=== PATIENT | male | born 1975 | race Hispanic/Latino ===

== ENCOUNTER 2016-06-19 03:07 | Emergency (ER) | payer MEDICAID ==
[~2016-06-19 03:07] MED LIST: CALC667S PO; CARV25TA2 PO; ERGO500050 PO; NIFE60TA62 PO; NITR0.4T6 SL; PHO667 PO
--- NOTE | 2016-06-19 06:53 | ED.REPORT ---
HPI-Abd Pain M 40 and Over Date of Service Jun 19, 2016 ED Provider: Cuong Gonzalez MD 41yoM libyan only speaking with PMH remarkable for ESRD 2/2 cedric's on hemodialysis presents with 3 days of worsening abdominal pain and constipation. The patient states that this has happened once before and he was seen in the ED and given medication which helped relieve his pain. The patient states that he typically stools 2-3 times per day, however he states that he has not stooled within the last 3 days. The patient states that yesterday at dialysis with Dr. Guevara he was given Omeprazole for his abdominal pain and he has taken one dose without improvement in his pain. The patient describes the pain as diffuse but mostly right sided and would rate the pain as 6 out of 10. Nursing Notes Stated Complaint: CONSTIPATION Chief Complaint: General Complaint Nursing Notes Reviewed: Yes Allergies: Coded Allergies: metoclopramide HCl (Verified Adverse Reaction, Intermediate, anxiety, stiffness and numbness, 06/25/14) Scheduled Calcium Acetate (Phoslo) 667 Mg Tablet 2,668 MG PO TIDWM Calcium Acetate (Phoslyra) 667 Mg/5 Ml Solution 2,001 MG PO TIDWM Carvedilol (Carvedilol) 25 Mg Tablet 25 MG PO BID Ergocalciferol (Vitamin D2) (Drisdol) 50,000 Unit Capsule 50,000 UNIT PO Q7D Nifedipine ER (Nifedipine ER) 60 Mg Tab.er.24 60 MG PO BID Scheduled PRN Bisacodyl (Dulcolax Rectal) 10 Mg Supp.rect 10 MG RC DAILY PRN PRN For Constipation Lactulose (Lactulose) 10 Gm/15 Ml Solution 10 GM PO Q8H PRN PRN For Constipation Nitroglycerin SL (Nitroglycerin SL) 0.4 Mg Tab.subl 0.4 MG SL DIRECTED PRN PRN For Chest Pain General Time Seen by MD: 04:30 Chief Complaint Abdominal pain, Constipation Hx Obtained From: Patient, Spouse Arrived By: Walk-in Sudden in Onset?: No Onset Occurred: 3 days ago Symptom Duration: Since onset Progression since Onset: Waxes and wanes, Gradually worsening Location: : Diffuse Quality: Cramping Radiation: : Does not radiate Severity: Current: Pain level 6 out of 10 Severity: Maximum: Moderate Recent Healthcare: Recent doctor visit Similar Sx Previous: Yes Past Medical History Past Medical History End stage renal disease on dialysis Reports: Hypertension Past Surgical History left arm fistula Family History Noncontributory Smoking History Never Smoker Social History Alcohol Use: Denies alcohol use Drug Use: Denies drug use Other Social History: Good social support, Lives with children, Local resident Occupation Does not work Ambulatory Status Independent Review of Systems Constitutional: Denies: Chills, Fever Respiratory: Denies: Hemoptysis, Non-productive cough Cardiovascular: Denies: Chest pain, Palpitations GI: Denies: Diarrhea, Hematochezia, Melena Male: Denies Dysuria, Denies Hematuria Musculoskeletal: Denies: Joint swelling Complete sys rev & neg: except as marked. Physical Exam Initial Vital Signs See nursing notes Initial VS: Reviewed Head / Eyes: Atraumatic, Normocephalic, PERRL ENT: Mucous membranes moist, Conjunctiva normal, No scleral icterus Neck: Supple, Non-tender, Full range of motion Lymphatic: No lymphadenopathy Extremities: Vascular intact, Neuro intact, No swelling, No tenderness Skin: Warm, Dry, No cyanosis Neurologic: Alert, Oriented, Nonfocal Psychiatric: Mood/affect normal, Behavior normal, Normal thought content General/Constitutional: Awake, Alert Distress / Hydration: Positive: Distress mild Respiratory / Chest: Breath sounds NL, Breath sounds = bilat, No respiratory distress, No rales, No rhonchi, No wheezing Cardiovascular: Heart rate NL, Regular rhythm, Heart sounds NL, Peripheral circulation NL Abdomen: Atraumatic, Soft, McBurney's non-tender, No guarding, No rebound, No distention, No hernia, No palpable mass, No pulsatile mass Tenderness/Guarding/Rebound: Positive: Tender RLQ... (Mild), Tender RUQ... ( Mild), Tender diffuse Bowel Sounds / Distention: Positive: Bowel sounds hypoactive Head / Eyes: Normocephalic, PERRL ENT: Airway patent, Mucous membranes moist, Pharynx NL Skin: Color NL, Warm, Dry, Turgor NL fistula present in right UE without erythema, purulence or fluctuance noted on exam Re-Eval/Medical Decision Med Decision/Clinical Course 41yoM with ESRD 2/2 cedric's presents with 3 days of reported constipation. Xray imaging is consistent with constipation. Dulcolax suppository and lactulose prescribed. Patient advised to follow up with his PCP without improvement. Counseled Regarding: Diagnosis, Lab results, Need for follow-up, When/why to return to ED Discharge & Departure Primary Impression: Constipation Additional Impression: ESRD (end stage renal disease) on dialysis Ruled Out: Small bowel obstruction Disposition: Home )( All Prior VS Reviewed: Yes Condition: Stable Patient Instructions: Constipation (ED) Additional Instructions: During you visit to [facility] Emergency Department we obtained blood work for infectious markers, blood cell numbers, and electrolytes. We obtained xray imaging of your abdomen consistent with constipation. Your vital signs were stable and safe for discharge. We will send you home with - Docusate Suppositories as well as Lactulose for constipation - Zofran Nausea medications If you do not have a bowel movement within the next 36 hours taking the above medication please try and be seen by your PCP for evaluation where other medication by be considered. Do not hesitate to call emergency services or your primary care physician if you experience any of the following. - High unrelenting fevers. - Uncontrolled vomiting. - Severe hypertension. - dizziness or loss of consciousness. - Chest pain or severe shortness of breath. With return of normal bowel function please follow up with your primary care physician in 1-2 weeks time following your emergency department visit for medication checks and general well-being. Karsten campoverde visita al [facility], obtuvimos anlisis de madhavi para marcadores infecciosos, nmeros de clulas sanguneas y electrolitos. Hemos obtenido michael radiografa de campoverde abdomen consistente con estreimiento. Dyan signos vitales temi estables y seguros para el marge. Te enviaremos a casa con - Suppositories Docusate, as bonita Lactulose para el estreimiento - Zofran Medicamentos para las nuseas Si no tiene un movimiento intestinal dentro de las siguientes 36 horas tomando la medicacin anterior por favor trate de ser visto por campoverde PCP para evaluacin donde se considere otra medicacin. No dude en llamar a los servicios de emergencia oa campoverde mdico de atencin primaria si experimenta alguno de los siguientes sntomas. - Fiebres implacables y elevadas. - Vmitos incontrolados. - Hipertensin grave. - mareos o prdida del conocimiento. - Dolor en el pecho o falta de aire severa. Con el retorno de la funcin intestinal normal, por favor, siga con campoverde mdico de atencin primaria en 1-2 semanas despus de campoverde visita al departamento de emergencia para verificaciones de la medicacin y bienestar general. Referrals: Thea Collins MD (PCP) Attending Statement As attending of record for this patient, I conducted an independent history and physical examination, and agree with the resident documentation as above, and as amended. copies to: Thea Collins MD, NICHOLAS K DO Jun 19, 2016 06:50 Cuong Gonzalez MD Jun 19, 2016 07:26
[2016-06-19] MEDS ORDERED: DOCU283E2 RC (07:10)
[2016-06-19] MEDS ORDERED: LACT10SO27 PO (07:10)
[2016-06-19] MEDS ORDERED: BISA10SU61 RC (07:14)
[2016-06-19] MEDS ORDERED: ONDA8TAB7 PO (07:41)
--- NOTE | 2016-06-19 08:20 | DRSVH ---
PROCEDURE: X-RAY ACUTE ABDOMINAL SERIES ([id number]) INDICATIONS: PAIN, CONSTIPATION TECHNIQUE: One view chest and two views of the abdomen were acquired. COMPARISON: [facility], CR, XR CHEST 2VW, 04/03/2016, 9:41. FINDINGS: Surgical changes and devices: None. Chest: Lungs are clear. Heart size is normal. No pleural effusions. No pneumoperitoneum. Abdomen: Bowel gas pattern is normal. No suspicious calcifications. Visualized solid organ contour s appear normal. Bones: No suspicious bony lesions. IMPRESSION: No acute process. Dictated by: Yvon Conklin M.D. on 06/19/2016 at 8:18 Approved by: Yvon Conklin M.D. on 06/19/2016 at 8:18
[2016-06-19 08:27] LABS: BASOPHILS % (AUTO) 0.1 % (0-3); EOSINOPHILS % (AUTO) 2.3 % (0-5); MONOCYTES % (AUTO) 8.5 % (4-12); Mean Corpuscular Hemoglobin 30.9 pg (27.0-35.0); NEUTROPHILS % (AUTO) 77.3 % (40-74); Platelet Count 203 bil/L (150-400)
[2016-06-19 08:30] LABS: Magnesium 2.1 mg/dL (1.6-2.6)
[2016-06-19 08:45] VITALS: BP 121/77; PULSE 85; RESP 18; O2SAT 94
== END 2016-06-19 08:46 | disposition home or self-care (01) ==
LOC: SED 03:07
DX: K59.00 Constipation, unspecified (principal); I12.0 Hypertensive chronic kidney disease with stage 5 chronic kidney disease or end stage renal disease; N18.6 End stage renal disease; Z99.2 Dependence on renal dialysis; Z95.828 Presence of other vascular implants and grafts; Z88.8 Allergy status to other drugs, medicaments and biological substances

== ENCOUNTER 2016-09-23 20:45 | Emergency (ER) | payer MEDICAID ==
[~2016-09-23 20:45] MED LIST changes: +BISA10SU61 RC; +LACT10SO27 PO; +ONDA8TAB7 PO
[2016-09-23 21:00] VITALS: BP 158/99; PULSE 88; RESP 20; O2SAT 99
--- NOTE | 2016-09-23 22:28 | ED.REPORT ---
HPI-Rash / Abscess Date of Service September 23, 2016 ED Provider: Dominick JordanO. A 41 year old male with a history of hypertension and ESRD on dialysis presents to the ED with bilateral leg rashes onset three days ago, after being dialyzed. The rashes are red but not painful. The patient also reports mild constipation. He denies fever, nausea, vomiting, cough, epistaxis, hemoptysis, or other symptoms. The patient has had similar symptoms in the past that resolved on their own. His last dialysis was today. Nursing Notes Stated Complaint: LEG PAIN Chief Complaint: Skin Rash/Abscess Nursing Notes Reviewed: Yes Allergies: Coded Allergies: metoclopramide HCl (Verified Adverse Reaction, Intermediate, anxiety, stiffness and numbness, 09/23/16) Scheduled Calcium Acetate (Phoslo) 667 Mg Tablet 2,668 MG PO TIDWM Calcium Acetate (Phoslyra) 667 Mg/5 Ml Solution 2,001 MG PO TIDWM Carvedilol (Carvedilol) 25 Mg Tablet 25 MG PO BID Ergocalciferol (Vitamin D2) (Drisdol) 50,000 Unit Capsule 50,000 UNIT PO Q7D Nifedipine ER (Nifedipine ER) 60 Mg Tab.er.24 60 MG PO BID Scheduled PRN Bisacodyl (Dulcolax Rectal) 10 Mg Supp.rect 10 MG RC DAILY PRN PRN For Constipation Lactulose (Lactulose) 10 Gm/15 Ml Solution 10 GM PO Q8H PRN PRN For Constipation Nitroglycerin SL (Nitroglycerin SL) 0.4 Mg Tab.subl 0.4 MG SL DIRECTED PRN PRN For Chest Pain Ondansetron ODT (Zofran ODT) 8 Mg Tablet 8 MG PO Q4H PRN PRN For Nausea General Time Seen by MD: 22:28 Chief Complaint Rash Hx Obtained From: Patient Arrived By: Walk-in Onset Occurred: 3 days ago Symptom Duration: Since onset Severity: Current: No pain currently Severity: Maximum: No pain Pertinent Negative: Relieved by nothing Recent Healthcare: No recent doctor visit Similar Sx Previous: Yes Past Medical History Past Medical History End stage renal disease on dialysis Reports: Hypertension Past Surgical History left arm fistula Family History Noncontributory Smoking History Never Smoker Social History Alcohol Use: Denies alcohol use Drug Use: Denies drug use Other Social History: Good social support, Lives with children, Local resident Occupation Does not work Ambulatory Status Independent Review of Systems Constitutional: Denies: Fever Ears / Nose / Throat: Denies: Nose bleeding Respiratory: Denies: Hemoptysis, Non-productive cough, Shortness of breath GI: Reports: Constipation (Mild), Denies: Nausea, Vomiting Skin: Reports Rash (Bilateral legs) Complete sys rev & neg: except as marked. Physical Exam Initial Vital Signs Vital Signs (First) Date Time Temp Pulse Resp B/P Pulse Ox O2 Delivery O2 Flow Rate FiO2 09/23/16 21:00 37.2 88 20 158/99 99 Room Air Initial VS: Reviewed Head / Eyes: Atraumatic, Normocephalic ENT: Conjunctiva normal, No scleral icterus Neck: Supple, Full range of motion Respiratory: Breath sounds normal, Clear to auscultation, No respiratory distress Cardiovascular: Regular rate & rhythm, Heart sounds normal Neurologic: Alert, Oriented, Nonfocal Psychiatric: Mood/affect normal, Behavior normal, Normal thought content General/Constitutional: Awake, Alert Skin: Warm, Dry Rash / Lesion Notes: Petechia progressing to purpura on anterior shins bilaterally Interpretation & Diagnostics Lab Results Interpretation Result Diagram: 09/24/16 0032 09/24/16 0032 Test 09/24/16 00:32 09/24/16 03:55 White Blood Count 7.8th/mm3 (3.8-10.1) Red Blood Count 3.64mil/mm3 (4.40-5.80) Hemoglobin 10.7g/dL (13.8-17.2) Hematocrit 32.6% (41.0-50.0) Mean Corpuscular Volume 89.6fL (81-100) Mean Corpuscular Hemoglobin 29.4pg (27.0-35.0) Mean Corpuscular Hemoglobin Concent 32.8% (32.0-37.0) Red Cell Distribution Width 15.0% (12.3-15.4) Platelet Count 246bil/L (150-400) Neutrophils (%) (Auto) 64.9% (40-74) Lymphocytes (%) (Auto) 18.7% (14-46) Monocytes (%) (Auto) 9.9% (4-12) Eosinophils (%) (Auto) 5.9% (0-5) Basophils (%) (Auto) 0.3% (0-3) Erythrocyte Sedimentation Rate 40mm/hr (0-15) Prothrombin Time 10.1sec (8.1-12.5) Prothromb Time International Ratio 0.95ratio Activated Partial Thromboplast Time 31.0sec (22.8-33.0) Sodium Level 138mEq/L (134-144) Potassium Level 3.3mEq/L (3.5-5.2) Chloride Level 91mEq/L (97-108) Carbon Dioxide Level 30mmol/L (18-29) Blood Urea Nitrogen 29mg/dL (6-24) Creatinine 5.15mg/dL (0.76-1.27) Estimat Glomerular Filtration Rate 13mL/min (>59) Glucose Level 101mg/dL (60-99) Calcium Level 8.3mg/dL (8.5-10.1) Total Bilirubin 0.2mg/dL (0.0-1.2) Aspartate Amino Transf (AST/SGOT) 11U/L (0-50) Alanine Aminotransferase (ALT/SGPT) 9U/L (0-44) Alkaline Phosphatase 76U/L (25-150) C-Reactive Protein 2.1mg/dL (0.0-0.5) Total Protein 7.2g/dL (6.4-8.4) Albumin 3.9g/dL (3.4-5.0) Hold Sweeney Top Tube Received (Received) Hepatitis C Comment . Procedures BIOPSY COLLECTION: TIME: 02:50 PROCEDURE PERFORMED BY: ED physician CONSENT/SETUP/SITE PREP: Consent from patient, Time-out performed, Hand hygiene observed, Stand sterile technique LOCATION: Left anterior calf BIOPSY SIZE/INSTRUMENT: Punch biopsy, 3mm SKIN PREP: Chlorhexidine SKIN REPAIR: 5O Nylon, 2 sutures SUTURE TECHNIQUE: Mattress POST-PROCEDURE/COMPLICATIONS: Dressing applied, No complications, Condition improved, Tolerated procedure well, Patient stable Re-Eval/Medical Decision Med Decision/Clinical Course Petechial outbreak is been present for 4 days. Some up to give Colace what looks like purpura. No lesions are raised. Symptoms actually looked better after he elevated his legs. No signs of meningococcemia. No signs of sepsis. Biopsy was taken. Consult nephrology appreciated. Dr. Ramos concurs with the antibiotics and the tissue biopsy. Consult hospitalist appreciated. Concurs with antibiotics and outpatient follow-up. Mr. Evans received Rocephin and vancomycin. He is going to call his labor economist tomorrow morning for recheck. He will also call call to follow up with a tissue biopsy. Source of Hx: Old records Re-Evaluation/Progress : Time of Eval: 02:45 Patient Status: Condition improved Re-Evaluation/Progress Note: Discussed with patient lab results, nephrology consult, diagnosis, and plan for biopsy with subsequent discharge. Follow-up and return to the ER instructions given. Patient agrees with plan for care and all questions were addressed. Consultation #1: Referral / Consult Name: James Ramos DO Consulted With: Nephrology Call Returned at: 02:30 Helicopter Officer: Agrees with avery, Agrees with plan Note: Discussed patient's case Consultation #2: Referral / Consult Name: Go Tafoya MD Consulted With: Hospitalist Call Returned at: 02:40 Helicopter Officer: Agrees with avery, Agrees with plan Note: Recommends acute hepatitis panel Counseled Regarding: Diagnosis, Lab results, Need for follow-up, When/why to return to ED Discharge & Departure Impression: Primary Impression: Petechial eruption Disposition: Home Discharge Condition All VS Reviewed: Yes Condition: Improved Patient Instructions: Dermatitis (ED) Additional Instructions: The rash looks like petechia which is bleeding under the skin. This may be related to the dialysis. This may be related to an infection. Take Keflex twice daily for 5 days. We have sent out a tissue biopsy and this will be available this week. Call [facility] clinic in the morning to set up a follow-up for this week. Call your labor economist to set up a follow-up for this week as well. If the rash grows in size or if you develop a fever or any new or worsening symptoms come right back to the emergency department. GOOGLE TRANSLATE: La erupcin se parece a petechia que est sangrando debajo de la piel. [place] puede estar relacionado con la dilisis. [place] puede estar relacionado con michael infeccin. [place] Keflex dos veces al da oscar 5 steve. Hemos enviado michael biopsia de tejido y sta estar disponible esta semana. Llame a la clnica de [facility] en la maana para establecer un seguimiento para esta semana. Llame a campoverde nefrlogo para establecer un seguimiento para esta semana tambin. Si la erupcin crece en tamao o si usted desarrolla fiebre o cualquier nuevo o empeoramiento de los sntomas vienen de vuelta al departamento de emergencia. Referrals: Thea Collins MD (PCP) Geraldine Giron MD Scribe Attestation Portions of this note were transcribed by Carrie Goff. I, Dr. Garcia, personally performed the history, physical exam, and medical decision-making; I reviewed and confirmed the accuracy of the information in the transcribed note. Signed by: Chloe Yee, 09/24/2016, 04:10 copies to: Geraldine Giron MD; Thea Collins MD, Todd P DO September 23, 2016 22:28 CARRIE GOFF September 23, 2016 22:55
[2016-09-24 00:45] LABS: BASOPHILS % (AUTO) 0.3 % (0-3); EOSINOPHILS % (AUTO) 5.9 % (0-5); MONOCYTES % (AUTO) 9.9 % (4-12); Mean Corpuscular Hemoglobin 29.4 pg (27.0-35.0); Mean Corpuscular Volume 89.6 fL (81-100); NEUTROPHILS % (AUTO) 64.9 % (40-74); Platelet Count 246 bil/L (150-400)
[2016-09-24 00:46] VITALS: BP 136/94; PULSE 75; RESP 18; O2SAT 99
[2016-09-24 01:05] LABS: INR 0.95 ratio
[2016-09-24] MEDS ORDERED: cefTRIAXone Inj 2,000 MG in Dextrose 5% Minibag Plus 50 ML IV ONE (02:35)
[2016-09-24] MEDS ORDERED: Lidocaine 1%-Epi 1:100,000 20 mL Inj NERVEBLOCK ONE (02:50)
[2016-09-24 05:13] VITALS: BP 142/98; PULSE 77; RESP 14; O2SAT 98
[2016-09-25 01:09] LABS: Hepatitis A Antibody IgM Negative (Negative); Hepatitis B Core Antibody IgM Negative (Negative)
--- NOTE | 2016-09-27 10:15 | PATH ---
SURGICAL PATHOLOGY Attending Physician:See Additional MD CASE STATUS: Signed Out PATIENT NAME: RAYMON TELLO PID: [id number] : 1975 DATE COLLECTED:09/24/2016 00:00 SPECIMEN: Skin, biopsy CLINICAL HISTORY: PETECHIAE PURPURA ANTERIOR ANDERSON, NORMAL PLATELET 1. LEFT ANTERIOR ANDERSON FINAL DIAGNOSIS: DR. Marlys SKY, BOARD-CERTIFIED DERMATOPATHOLOGIST HAS REVIEWED THIS CASE. LEFT ANTERIOR ANDERSON, PUNCH BIOPSY: LEUKOCYTOCLASTIC VASCULITIS. NEGATIVE FOR MALIGNANCY. 09/27/2016, [facility] ICD10: L95.8 GROSS DESCRIPTION: The specimen is received in one formalin filled container labeled with the patient's name, sublabeled "left anterior anderson" and consists of a 0.3 x 0.3 x 0.4 CM london-simons to london-brown mottled punch biopsy of skin. The surgical margin is inked blue. The specimen is entirely submitted in one cassette. 09/24/2016 [facility] ICD-9 CODES: CPT CODES: 1: 41390 Electronically Signed Out Satish Leblanc M.D.,[facility] [address], [place] [address] Technical component performed at [facility], [address] [place] [address] Ave, [address], [place], [address]
== END 2016-09-24 05:17 | disposition home or self-care (01) ==
LOC: SED 20:45
DX: R23.3 Spontaneous ecchymoses (principal); I12.0 Hypertensive chronic kidney disease with stage 5 chronic kidney disease or end stage renal disease; N18.6 End stage renal disease; Z99.2 Dependence on renal dialysis; Z88.8 Allergy status to other drugs, medicaments and biological substances
CPT/HCPCS: 11100; 36415; 80053; 85025; 85610; 85651; 85730; 86140; 86705; 86709; 87040; 87340; 87341; 88305; 96365; 96367; 99284; G0472; J0696; J3370; J7060

== ENCOUNTER 2016-12-04 21:35 | Emergency (ER) | payer MEDICAID ==
[~2016-12-04] VITALS: Ht 160 cm; Wt 59.0 kg
[2016-12-04 21:41] VITALS: BP 136/85; PULSE 84; RESP 18; O2SAT 98
[2016-12-04 22:23] LABS: BASOPHILS % (AUTO) 0.2 % (0-3); EOSINOPHILS % (AUTO) 9.5 % (0-5); MONOCYTES % (AUTO) 8.9 % (4-12); Mean Corpuscular Hemoglobin 28.8 pg (27.0-35.0); Mean Corpuscular Volume 89.7 fL (81-100); NEUTROPHILS % (AUTO) 60.3 % (40-74); Platelet Count 213 bil/L (150-400)
--- NOTE | 2016-12-04 22:41 | ED.REPORT ---
HPI-Abd Pain M 40 and Over Date of Service Dec 04, 2016 ED Provider: Santiago Rankin MD Pt is a 41 year old male with a history of end stage renal disease dialysis, and HTN who presents to the ED complaining of hematochezia 3x onset 13:00 today. He denies abdominal pain. The pt denies a history of external hemorrhoid , bleeding in his stool, and colonoscopy. Per pt, he had been on dialysis for 5 years 3x a week because he had a kidney infection that "shut his kidneys down." Nursing Notes Stated Complaint: BLOOD IN STOOL Chief Complaint: Male Abdominal Pain Nursing Notes Reviewed: Yes Allergies: Coded Allergies: metoclopramide HCl (Verified Adverse Reaction, Intermediate, anxiety, stiffness and numbness, 09/23/16) Scheduled Calcium Acetate (Phoslo) 667 Mg Tablet 2,668 MG PO TIDWM Calcium Acetate (Phoslyra) 667 Mg/5 Ml Solution 2,001 MG PO TIDWM Carvedilol (Carvedilol) 25 Mg Tablet 25 MG PO BID Ergocalciferol (Vitamin D2) (Drisdol) 50,000 Unit Capsule 50,000 UNIT PO Q7D Nifedipine ER (Nifedipine ER) 60 Mg Tab.er.24 60 MG PO BID Scheduled PRN Bisacodyl (Dulcolax Rectal) 10 Mg Supp.rect 10 MG RC DAILY PRN PRN For Constipation Lactulose (Lactulose) 10 Gm/15 Ml Solution 10 GM PO Q8H PRN PRN For Constipation Nitroglycerin SL (Nitroglycerin SL) 0.4 Mg Tab.subl 0.4 MG SL DIRECTED PRN PRN For Chest Pain Ondansetron ODT (Zofran ODT) 8 Mg Tablet 8 MG PO Q4H PRN PRN For Nausea General Time Seen by : 22:40 Chief Complaint Other (hematochezia) Hx Obtained From: Patient Arrived By: Walk-in Sudden in Onset?: No Onset Occurred: 5 - 8 hours ago (13:00) Symptom Duration: Since onset Past Medical History Past Medical History End stage renal disease on dialysis Reports: Hypertension Past Surgical History left arm fistula Family History Noncontributory Smoking History Never Smoker Social History Alcohol Use: Denies alcohol use Drug Use: Denies drug use Other Social History: Good social support, Lives with children, Local resident Occupation Does not work Ambulatory Status Independent Review of Systems Constitutional: Denies: Fever Respiratory: Denies: Non-productive cough GI: Reports: Hematochezia, Denies: Abdominal pain Complete sys rev & neg: except as marked. Physical Exam Initial Vital Signs Vital Signs (First) Date Time Temp Pulse Resp B/P Pulse Ox O2 Delivery O2 Flow Rate FiO2 12/04/16 21:41 37.0 84 18 136/85 98 Room Air Initial VS: Reviewed Head / Eyes: Atraumatic, Normocephalic Neck: Supple, Full range of motion Extremities: Vascular intact, Neuro intact Skin: Warm, Dry, No cyanosis Neurologic: Alert, Oriented, Nonfocal Psychiatric: Mood/affect normal, Behavior normal General/Constitutional: Awake, Alert Respiratory / Chest: Atraumatic, Breath sounds NL, Breath sounds = bilat Cardiovascular: Heart rate NL, Regular rhythm, Heart sounds NL Trace lower extremity edema Abdomen: Atraumatic, Soft, Non-tender Back: Atraumatic, Full range of motion MALE : Prostate is 2+ Rectal for Blood: Positive: Blood - occult heme + Interpretation & Diagnostics Lab Results Interpretation Result Diagram: 12/04/166 12/04/16 2216 Test 12/04/16 22:16 White Blood Count 8.3th/mm3 (3.8-10.1) Red Blood Count 3.78mil/mm3 (4.40-5.80) Hemoglobin 10.9g/dL (13.8-17.2) Hematocrit 33.9% (41.0-50.0) Mean Corpuscular Volume 89.7fL (81-100) Mean Corpuscular Hemoglobin 28.8pg (27.0-35.0) Mean Corpuscular Hemoglobin Concent 32.2% (32.0-37.0) Red Cell Distribution Width 15.0% (12.3-15.4) Platelet Count 213bil/L (150-400) Neutrophils (%) (Auto) 60.3% (40-74) Lymphocytes (%) (Auto) 21.0% (14-46) Monocytes (%) (Auto) 8.9% (4-12) Eosinophils (%) (Auto) 9.5% (0-5) Basophils (%) (Auto) 0.2% (0-3) Prothrombin Time 10.1sec (8.1-12.5) Prothromb Time International Ratio 0.95ratio Sodium Level 138mEq/L (134-144) Potassium Level 3.4mEq/L (3.5-5.2) Chloride Level 94mEq/L (97-108) Carbon Dioxide Level 29mmol/L (18-29) Blood Urea Nitrogen 16mg/dL (6-24) Creatinine 3.94mg/dL (0.76-1.27) Estimat Glomerular Filtration Rate 18mL/min (>59) Glucose Level 126mg/dL (60-99) Calcium Level 8.2mg/dL (8.5-10.1) Total Bilirubin 0.2mg/dL (0.0-1.2) Aspartate Amino Transf (AST/SGOT) 22U/L (0-50) Alanine Aminotransferase (ALT/SGPT) 17U/L (0-44) Alkaline Phosphatase 72U/L (25-150) Total Protein 6.3g/dL (6.4-8.4) Albumin 3.6g/dL (3.4-5.0) Hold Sweeney Top Tube Received (Received) Re-Eval/Medical Decision Med Decision/Clinical Course 41-year-old male with a history of end-stage renal disease presenting with right red blood per rectum 3 starting earlier today. He has no history of this previously and does not know of any hemorrhoids. His exam is unremarkable for the same, but he is Hemoccult positive stool on the gloved finger. There is no gross blood noted on the rectal exam. His hemoglobin is unchanged from 3 months ago, ruling out acute anemia, and he is asymptomatic. There is no hypotension or tachycardia. He had no further bowel movements while in the emergency department. I advised that he needs a colonoscopy and will need to follow up with GI. He has a follow-up with his PCP tomorrow. Source of Hx: Old records Time of Eval: 23:29 Re-Evaluation/Progress Note: Pt rechecked. Performed rectal exam with pt's consent. Informed pt of plan for discharge. Pt understands and agrees with plan for discharge. F/U instructions and RTER warnings given. All questions addressed.All questions addressed. Counseled Regarding: Diagnosis, Lab results, Need for follow-up, When/why to return to ED Discharge & Departure Primary Impression: Bright red blood per rectum Additional Impressions: End stage renal disease on dialysis Hypokalemia Ruled Out: Acute blood loss anemia Disposition: Home Vital Signs - All Vital Signs Date Time Temp Pulse Resp B/P Pulse Ox O2 Delivery O2 Flow Rate FiO2 12/05/16 00:16 36.8 83 18 154/95 97 Room Air 12/04/16 21:41 37.0 84 18 136/85 98 Room Air )( All Prior VS Reviewed: Yes Condition: Stable Patient Instructions: Rectal Bleeding (ED) Additional Instructions: Thank you for entrusting us with your care. It appears your bleeding has stopped or slowed based off your exam and the fact you have not had more bloody stools since 1pm today. Keep your follow-up appointment with Dr. Aviles tomorrow. You will need to have a colonoscopy performed to figure out the cause of your bleeding. Please call the number below to arrange a consultation with a chairman and subsequent colonoscopy. Return to the Emergency Department if the bleeding gets worse, of if you feel lightheaded, weak, or experience any other worsening symptoms. Referrals: Thea Collins MD (PCP) Fabio Bojorquez MD Attestation Portions of this note were transcribed by Cande Will. I, Dr. Rankin personally performed the history, physical exam and medical decision-making; I reviewed and confirmed the accuracy of the information in the transcribed note. Signed by: Chloe Moya, 12/04/16. copies to: Thea Collins MD; Fabio Bojorquez MD, Gary R DO Dec 04, 2016 22:40 Cande Walker Dec 04, 2016 22:50
[2016-12-04 22:44] LABS: INR 0.95 ratio
[2016-12-05 00:16] VITALS: BP 154/95; PULSE 83; RESP 18; O2SAT 97
== END 2016-12-05 00:16 | disposition home or self-care (01) ==
LOC: SED 21:35
DX: K62.5 Hemorrhage of anus and rectum (principal); I12.0 Hypertensive chronic kidney disease with stage 5 chronic kidney disease or end stage renal disease; N18.6 End stage renal disease; E87.6 Hypokalemia; Z99.2 Dependence on renal dialysis; Z88.8 Allergy status to other drugs, medicaments and biological substances

== ENCOUNTER 2016-12-20 20:18 | Emergency (ER) | payer MEDICAID ==
[~2016-12-20] VITALS: Ht 160 cm; Wt 58.0 kg
[2016-12-20 20:21] VITALS: BP 157/100; PULSE 97; RESP 17; O2SAT 97
--- NOTE | 2016-12-20 21:48 | ED.REPORT ---
HPI-Abd Pain M 40 and Over Date of Service Dec 20, 2016 ED Provider: Dr. Jara Pt is a Turkish 41 year old male with end stage renal disease, on dialysis, who presents to the ED with concerns for intermittent abdominal pain for the past 3 days. He last had dialysis today. He reports that he has an appointment for a consult with the GI doctor, but the pain became so severe, that he was told to come in to the ED. Pt denies any nausea, vomiting fevers or chills, but admits to diarrhea and diffuse abdominal tenderness. He reports that he has had this pain in the past, but denies it ever being associated with diarrhea. Nursing Notes Stated Complaint: STOMACH PAIN Chief Complaint: Male Abdominal Pain Nursing Notes Reviewed: Yes Allergies: Coded Allergies: metoclopramide HCl (Verified Adverse Reaction, Intermediate, anxiety, stiffness and numbness, 09/23/16) Scheduled Calcium Acetate (Phoslo) 667 Mg Tablet 2,668 MG PO TIDWM Calcium Acetate (Phoslyra) 667 Mg/5 Ml Solution 2,001 MG PO TIDWM Carvedilol (Carvedilol) 25 Mg Tablet 25 MG PO BID Ciprofloxacin (Ciprofloxacin) 500 Mg Tablet 500 MG PO DAILY after dialysis Ergocalciferol (Vitamin D2) (Drisdol) 50,000 Unit Capsule 50,000 UNIT PO Q7D Metronidazole (Flagyl) 500 Mg Tablet 500 MG PO Q8H Nifedipine ER (Nifedipine ER) 60 Mg Tab.er.24 60 MG PO BID Scheduled PRN Bisacodyl (Dulcolax Rectal) 10 Mg Supp.rect 10 MG RC DAILY PRN PRN For Constipation Hydrocodone-Acetaminophen 5-325 mg (Hydrocodone-Acetaminophen 5-325 mg) 1 Each Tablet 1 TABLET PO Q4H PRN PRN For Pain Lactulose (Lactulose) 10 Gm/15 Ml Solution 10 GM PO Q8H PRN PRN For Constipation Nitroglycerin SL (Nitroglycerin SL) 0.4 Mg Tab.subl 0.4 MG SL DIRECTED PRN PRN For Chest Pain Ondansetron ODT (Zofran ODT) 8 Mg Tablet 8 MG PO Q4H PRN PRN For Nausea Ondansetron ODT (Zofran ODT) 4 Mg Tablet 4 MG PO Q4H PRN PRN For Nausea General Time Seen by MD: 21:47 Chief Complaint Abdominal pain Hx Obtained From: Patient Arrived By: Walk-in Sudden in Onset?: Yes Onset Occurred: 3 days ago Symptom Duration: Since onset Location: : Diffuse Quality: Painful Severity: Current: Moderate Severity: Maximum: Moderate Similar Sx Previous: Yes Past Medical History Past Medical History End stage renal disease on dialysis Reports: Hypertension Past Surgical History left arm fistula Family History Noncontributory Smoking History Never Smoker Social History Alcohol Use: Denies alcohol use Drug Use: Denies drug use Other Social History: Good social support, Lives with children, Local resident Occupation Does not work Ambulatory Status Independent Review of Systems Constitutional: Denies: Chills, Fever, Malaise, Weakness - generalized Respiratory: Denies: Non-productive cough, Shortness of breath, Wheezing Cardiovascular: Denies: Chest pain, Syncope GI: Reports: Abdominal pain, Diarrhea, Denies: Constipation, Nausea, Vomiting Male: Denies Dysuria, Denies Flank pain, Denies Urinary urgency Musculoskeletal: Denies: Back pain Complete sys rev & neg: except as marked. Physical Exam Initial Vital Signs Vital Signs (First) Date Time Temp Pulse Resp B/P Pulse Ox O2 Delivery O2 Flow Rate FiO2 12/20/16 20:21 37.3 97 17 157/100 97 Room Air Initial VS: Reviewed Head / Eyes: Atraumatic, Normocephalic, PERRL ENT: Mucous membranes moist, Conjunctiva normal, No scleral icterus Neck: Supple, Non-tender, Full range of motion Skin: Warm, Dry, No cyanosis Neurologic: Alert, Oriented, Nonfocal General/Constitutional: Awake, Alert Respiratory / Chest: Atraumatic, Breath sounds NL, Breath sounds = bilat, No respiratory distress Cardiovascular: Heart rate NL, Regular rhythm, Heart sounds NL, No gallop, No murmurs, No rubs Abdomen: Atraumatic, No guarding, No rebound Tenderness/Guarding/Rebound: Positive: Tender diffuse Back: Atraumatic, Inspection NL, No CVA tenderness Interpretation & Diagnostics Lab Results Interpretation Result Diagram: 12/20/16219912/20/162199 Test 12/20/16 22:00 12/20/16 22:15 White Blood Count 11.7th/mm3 (3.8-10.1) Red Blood Count 4.26mil/mm3 (4.40-5.80) Hemoglobin 12.1g/dL (13.8-17.2) Hematocrit 37.1% (41.0-50.0) Mean Corpuscular Volume 87.1fL (81-100) Mean Corpuscular Hemoglobin 28.4pg (27.0-35.0) Mean Corpuscular Hemoglobin Concent 32.6% (32.0-37.0) Red Cell Distribution Width 15.4% (12.3-15.4) Platelet Count 330bil/L (150-400) Neutrophils (%) (Auto) 70.7% (40-74) Lymphocytes (%) (Auto) 12.1% (14-46) Monocytes (%) (Auto) 9.3% (4-12) Eosinophils (%) (Auto) 7.4% (0-5) Basophils (%) (Auto) 0.2% (0-3) Sodium Level 138mEq/L (134-144) Potassium Level 3.4mEq/L (3.5-5.2) Chloride Level 94mEq/L (97-108) Carbon Dioxide Level 30mmol/L (18-29) Blood Urea Nitrogen 15mg/dL (6-24) Creatinine 3.37mg/dL (0.76-1.27) Estimat Glomerular Filtration Rate 21mL/min (>59) Glucose Level 134mg/dL (60-99) Calcium Level 8.4mg/dL (8.5-10.1) Magnesium Level 1.8mg/dL (1.6-2.6) Total Bilirubin 0.2mg/dL (0.0-1.2) Aspartate Amino Transf (AST/SGOT) 15U/L (0-50) Alanine Aminotransferase (ALT/SGPT) 10U/L (0-44) Alkaline Phosphatase 77U/L (25-150) Total Protein 6.4g/dL (6.4-8.4) Albumin 3.4g/dL (3.4-5.0) Lipase 28U/L (13-60) Hold Sweeney Top Tube Received (Received) CT Abd / Pelvis Interpretation Conclusion: Small bowel mural thickening with adjacent mesenteric haziness and mild associated ascited, consistent with an enteritis. Low grade small bowel obstruction is felt much less likely. Numerous small mesenteric lymph nodes which could be reactive or secondary to an adenitis. No findings of diverticulitis or acute appendicitis. Interpretation / Wet Read by: Interpret - Radiologist Re-Eval/Medical Decision Med Decision/Clinical Course 41-year-old male with history of end-stage renal disease on dialysis presenting with abdominal pain for several days. His labs are stable. CT scan shows enteritis. Inflammatory versus infectious. Possibly viral though will treat with abx as below. Follow-up primary doctor on Friday. Return precautions given. Source of Hx: Old records Time of Eval: 22:54 Re-Evaluation/Progress Note: Pt is rechecked and informed of his lab results, he requests a CT scan. Time of Eval: 00:20 Re-Evaluation/Progress Note: Pt is rechecked and informed of his CT results and the plan to discharge him at this time. He understands and agrees, all questions are addressed. Counseled Regarding: Diagnosis, Lab results, Need for follow-up, When/why to return to ED Discharge & Departure Primary Impression: Enteritis Disposition: Home Vital Signs - All Vital Signs Date Time Temp Pulse Resp B/P Pulse Ox O2 Delivery O2 Flow Rate FiO2 12/20/16 20:21 37.3 97 17 157/100 97 Room Air )( All Prior VS Reviewed: Yes Condition: Stable Additional Instructions: Thank you for seeking care in the emergency department today. You have enteritis, this is either inflammation or a mild infection in your intestine. Take the antibiotics as prescribed, take Tylenol to alleviate your pain. Follow-up with you primary care provider on Friday. Return if you begin to experience and worsening abdominal pain, fevers, vomiting , or any other new or worsening symptoms. Referrals: Adam Aviles MD (PCP) Janeneibcesar Attestation Portions of this note were transcribed by Yris Abad. I, Dr. Jara personally performed the history, physical exam and medical decision-making; I reviewed and confirmed the accuracy of the information in the transcribed note. Signed by:Chloe Walter, 12/20/2016 00:48 copies to: Adam Aviles MD, Ben M MD Dec 20, 2016 21:48 LESIA ABAD Dec 20, 2016 22:05
[2016-12-20] MEDS ORDERED: Ondansetron 2 mg/mL 2 mL Inj IVPUSH PRN (22:15)
[2016-12-20] MEDS ORDERED: LidocaineVisc 2%:Antacid 1:1 10 mL Syringe PO ONE (22:15)
[2016-12-20 22:18] LABS: BASOPHILS % (AUTO) 0.2 % (0-3); EOSINOPHILS % (AUTO) 7.4 % (0-5); MONOCYTES % (AUTO) 9.3 % (4-12); Mean Corpuscular Hemoglobin 28.4 pg (27.0-35.0); Mean Corpuscular Volume 87.1 fL (81-100); NEUTROPHILS % (AUTO) 70.7 % (40-74); Platelet Count 330 bil/L (150-400)
[2016-12-20 22:50] LABS: Magnesium 1.8 mg/dL (1.6-2.6)
[2016-12-21] MEDS ORDERED: METR500T PO ×2 (00:47→00:53)
[2016-12-21] MEDS ORDERED: CIPR-198 PO ×2 (00:47→00:53)
[2016-12-21] MEDS ORDERED: ONDA4TAB9 PO (00:47)
[2016-12-21] MEDS ORDERED: HYDR-4003 PO (00:54)
[2016-12-21 01:51] VITALS: BP 126/75; PULSE 96; RESP 18; O2SAT 99
--- NOTE | 2016-12-21 09:04 | DRSVH ---
PROCEDURE: CT ABDOMEN AND PELVIS WITHOUT CONTRAST ([id number]) INDICATIONS: abd pain TECHNIQUE: Noncontrast 5 mm thick sections acquired from the diaphragms to the symphysis. 5 mm coronal and sagi ttal reformats were then performed. For radiation dose reduction, the following was used: automated exposure control, adjustment of mA and/or kV according to patient size. COMPARISON: [facility], CT, ABD/PELVIS W/CON (PN), 06/25/2014, 18:09. FINDINGS: Image quality: Somewhat limited by absence of both oral and intravenous contrast. ABDOMEN: Lung bases: Lung bases are clear. Heart size is normal. Solid organs: Liver and spleen are normal in size. Gallbladder appears normal. Pancreas is normal in contours. No adrenal nodules. Kidneys are again seen to be diminutive in size, without hydroneph rosis or nephrolithiasis. Peritoneum and bowel: Unenhanced colonic bowel loops demonstrate normal wall thickness and caliber. Several small bowel loops at the left mid abdomen show mild mural thickening, and there is mild lory a within the mesenteric fat both on the right and left, slightly greater on the left near the bowel l oops showing mild mural thickening. No free air. There is a small amount of free fluid within the p eritoneal space, and no abscess is suspected. Nodes and vessels: No retroperitoneal or mesenteric adenopathy by size criteria. Aorta and inferior vena cava are normal in caliber. Miscellaneous: No ventral hernias. PELVIS: Genitourinary: Bladder wall thickness is normal. Miscellaneous: No inguinal hernias or adenopathy. Small amount of free fluid deep within the pelvis Bones: No suspicious bony lesions. No vertebral body compression fractures. IMPRESSION: There is a finding of diminutive kidneys bilaterally, previously present during CT scanni 06/25/14. Quality of visualization of the abdomen and pelvis is somewhat limited by absence of ora l and intravenous contrast. The patient is clinically reported to be a dialysis patient. A peritoneal dialysis catheter is not seen. There is a small amount of edema within the peritoneal f at and also a small amount of free fluid both within the abdomen and pelvis but no evidence of free a ir or abscess formation. Etiology of the free fluid is uncertain, volume overload could explain this appearance in the setting of 6 dialysis dependent patient. Several small bowel loops are wall-thickening at the left mid abdomen, etiology uncertain. Pneumatos is or adjacent foreign body or evidence of definite small bowel obstruction is not associated. Enter itis would be a potential likely cause for this finding. Note: These findings are concordant with the preliminary interpretation. Dictated by: Ignacio Arenas M.D. on 12/21/2016 at 8:57 Approved by: Ignacio Arenas M.D. on 12/21/2016 at 9:02
== END 2016-12-21 01:52 | disposition home or self-care (01) ==
LOC: SED 20:18
DX: K52.9 Noninfective gastroenteritis and colitis, unspecified (principal); I13.11 Hypertensive heart and chronic kidney disease without heart failure, with stage 5 chronic kidney disease, or end stage renal disease; N18.6 End stage renal disease; Z99.2 Dependence on renal dialysis; Z88.8 Allergy status to other drugs, medicaments and biological substances
CPT/HCPCS: 36415; 74176; 80053; 83690; 83735; 85025; 96374; 96375; 99285; J2270; J2405

== ENCOUNTER → 2017-01-16 | Day surgery (SDC) | payer MEDICAID ==
[~2017-01-16] VITALS: Ht 160 cm; Wt 57.5 kg
[~2017-01-16] MED LIST changes: +0.9% Sodium Chloride 1,000 ML IV ONE; +CIPR-198 PO; +CYCL50CA3 PO; +DAPS25TA PO; +FOLI0.8T2 PO; +HYDR-4003 PO; +LISI10TA PO; +METR500T PO; +NITR0.4T38 SL; -NITR0.4T6 SL; +ONDA4TAB9 PO; +PRD5T PO; +Propofol 10,000 mCg/mL 20 mL Inj ONE; +SEVE800T7 PO; +SULF-239 PO; +fentaNYL-PF 50 mCg/mL 2 mL Inj ONE
--- NOTE | 2017-01-16 08:01 | PCM.HPANE ---
Patient Data Surgeon Admitting Provider: Attending Provider:Abhishek Sen MD Primary Care Physician:Thea Collins MD Other Provider: Reason for Visit Generalized Abdominal Pain Ht/WT & BMI Body Mass Index Allergies Coded Allergies: metoclopramide HCl (Verified Adverse Reaction, Intermediate, anxiety, stiffness and numbness, 01/14/17) Past Anesthesia History Anesthesia History: Denies:: Abnormal Airway, Anesthesia Reactions, Fam Anesthesia Reaction, Fam Malignant Hypertherm, Malignant Hyperthermia Diabetes History Hx Diabetes?: No MRSA MRSA: No Medications Hypertension Medication: No Home Meds Incl Beta Dimas: No Active Scripts Hydrocodone-Acetaminophen 5-325 mg 1 Each Tablet1 Tablet PO Q4H PRN For Pain # 10 TABLET Prov:Adam Jara MD 12/21/16 Ondansetron ODT (Zofran ODT)4 Mg Tablet4 Mg PO Q4H PRN For Nausea #10 TABLET Prov:Adam Jara MD 12/21/16 Ondansetron ODT (Zofran ODT)8 Mg Tablet8 Mg PO Q4H PRN For Nausea #14 TABLET Prov:Raymundo Colón DO 06/19/16 Lactulose 10 Gm/15 Ml Twbrfeeg55 Gm PO Q8H PRN For Constipation #1 BOTTLE Prov:Raymundo Colón DO 06/19/16 Reported Medications Dapsone 25 Mg Hikubm37 Mg PO DAILY 30 Days Ref 0 01/16/17 Sevelamer Carbonate (Renvela)800 Mg Abktoe618 Mg PO TID 90 Days 01/14/17 Prednisone (PredniSONE)5 Mg Tab5 Mg PO DAILY Ref 0 01/14/17 Folic Acid/Vitamin B Comp W-C (Nephro-Masood Tablet)0.8 Mg Tablet0.8 Mg PO 01/14/17 Lisinopril 10 Mg Joutqx01 Mg PO DAILY 30 Days Ref 0 01/14/17 Nifedipine ER 60 Mg Tab.er.2460 Mg PO BID Ref 0 12/25/15 Carvedilol 25 Mg Bpqcyn93 Mg PO BID Ref 0 12/25/15 Nitroglycerin SL 0.4 Mg Tab.subl0.4 Mg SL DIRECTED PRN For Chest Pain 12/25/15 Ergocalciferol (Vitamin D2) (Drisdol)50,000 Unit Agohkdl36,000 Unit PO Q7D 8/22/16 Calcium Acetate (Phoslyra)667 Mg/5 Ml Solution2,001 Mg PO TIDWM 12/25/15 Calcium Acetate (Phoslo)667 Mg Tablet2,668 Mg PO TIDWM 12/25/15 Discontinued Reported Medications Sulfamethoxazole/Trimeth 400-80 mg (Bactrim)1 Each Tablet1 Tablet PO BID Ref 0 01/14/17 Cyclophosphamide 50 Mg Bldxtvl14 Mg PO 01/14/17 Discontinued Scripts Metronidazole (Flagyl)500 Mg Yzldoh575 Mg PO Q8H 14 Days Prov:Adam Jara MD 12/21/16 Ciprofloxacin 500 Mg Tlycuu299 Mg PO DAILY 14 Days after dialysis Prov:Adam Jara MD 12/21/16 Bisacodyl (Dulcolax Rectal)10 Mg Supp.rect10 Mg RC DAILY PRN For Constipation # 30 SUPP.RECT Ref 1 Prov:Raymundo Colón DO 06/19/16 History History of ENT Problems?: No HEENT History: Denies:: Cataracts Dysphagia Sinus Problem Denture Type: None Teeth Condition: Within Normal Limits Hx of Heart Problems?: Yes Cardiovascular History: Positive for:: Hypertension Denies:: Cardiac Surgery Chest Pain Congestive Heart Failure Edema Heart Murmur Irregular Heartbeat Pacemaker Thrombophlebitis Hx of Respiratory Problem?: No Respiratory History: Denies:: Tuberculosis Hx Neurologic Problems?: Yes Neurological History: Positive for:: CVA (Cerebral bleed age 6 no deficit) Denies:: Alzheimer's Disease Dementia Dizziness Headaches Parkinson's Disease Seizures Hx of GI Problems?: No Hx of Problems?: Yes Genitourinary History: Positive for:: HX of Hemodialysis (friday11/01/2012 last session) Male Hx: Denies:: Prostate Problems Scrotal Mass Testicular Surgery Skin History: Denies:: History Skin Disorders? Pressure Ulcers Hx Musculoskeletal Problems?: No Musculoskeletal History: Denies:: Back Injury Joint Replacement Musculoskeletal Trauma Hx of Psycho/Social Problems?: No Psycho Social History: Denies:: Anxiety Bipolar Disorder Hx Depression Suicide Attempt Hx Surgeries?: No Hx Any Other Health Problems?: No Other History: Denies:: Cancer Endocrine Disease Hospitalization ( [facility]) Thyroid Disease History Blood Transfusions: Positive for:: Blood Transfusions Denies:: Blood Transfuse Reaction Hx Diabetes: No Hx Alcohol Use: NoHx Substance Use: No Smoking Status: Never Smoker Have You Smoked inLast 12 mo: No Stop/Bang Risk Assessment Category Category 1A: Patient has history of documented sleep apnea, and HAS NOT received any narcotic, sedative or anesthesia administration during this stay. Category 1B: Patient has history of documented sleep apnea, and HAS received any narcotic , sedative or anesthesia administration during this stay Category 2: Patient has SUSPECTED Obstructive Sleep Apnea, and HAS received any narcotic , sedative or anesthesia administration during this stay. Category 3: Patient has SUSPECTED Obstructive Sleep Apnea and HAS NOT received narcotic, sedative or anesthesia administration during this stay. Category 4: Outpatient in Procedural Areas with known sleep apnea or who screen positive for High Risk via the STOP/BANG questionnaire. Exam Exam General Appearance: Alert, Oriented X3, Cooperative, No Acute Distress HEENT/AIRWAY: MP 1 Lungs: Normal Air Movement Heart: Exam Unremarkable Plan Impression Patient chart reviewed, patient interviewed and anesthestic plan with risks, benefits, and alternatives discussed, and informed consent obtained. NPO per Anesth. Guidelines: Yes ASA Physical Status: ASA3 Severe Disease (esrd) Anesthetic Plan: MAC Bene/Risks/Altern/Consents: Yes HP Complete Prior to Induction: Yes Ignacio Anaya MD Jan 16, 2017 08:01
[2017-01-16 13:49] VITALS: BP 179/96; PULSE 67; RESP 16; O2SAT 97
--- NOTE | 2017-01-16 15:00 | PCM.ENDEGD ---
EGD Date of Service: Jan 16, 2017 Physician Abhishek Sen MD Pre Procedure Diagnosis: Abdominal pain Post Procedure Dx & Findings: Erosive gastropathy Procedure Esophagogastroduodenoscopy PROCEDURE IN DETAIL: Anesthesia by anesthesiology After proper sedation, Olympus video endoscope was inserted into patient's mouth and esophagus was successfully intubated. Scope introduced esophagus. Esophagus showed normal shiny whitish mucosa consistent with squamous cell component. Z line was intact at 40 cm from the incisors. Scope further advanced to the stomach. Stomach revealed patchy area of redness and superficial erosions in the center of these isolated redness. Biopsies are done.. Cardia fundus body antrum pylorus were all visualized. Retroflexion was done. Stomach was easily inflated and deflatable using air. Scope further advanced to the distal duodenum. Duodenum revealed normal villous structures with normal appearing folds without any mass ulcer erosion. Impression Erosive gastropathy Recommendation Await biopsies. Presedation Assessment Risks and Benefits Informed consent was obtained from the patient after all risks and benefits including but not limited to drug reaction, infection, pain, bleeding, perforation, as well as alternatives were discussed. Patient monitoring Continuous pulse oximetry, cardiac monitoring, blood pressure monitoring, IV access, and oxygen at 2L per nasal cannula. Complications There were no periprocedural complications identified. Post Procedure Plan Post Procedure Recommendations 1. Restrict activities today. 2. Resume normal activities in the morning. 3. Resume medications. 4. GERD behavioral modification: - Avoid fatty, acidic, spicy, large meals - Do not lie down after meals - Do not eat or drink anything for at least 2 1/2 hours before going to bed at night - Discontinue tobacco and alcohol - Decrease or avoid caffeine - Avoid chocolate and mints - Decrease weight - Avoid aspirin and non steroidal anti-inflammatory agents (NSAID) such as Aleve, Advil, Mobic, Naproxen, Ibuprofen, etc 5. Add proton pump inhibitor. Take 30 minutes before 1st meal of the day. 6. Patient informed of normal post procedure side effects as bloating, drowsiness, blood streaking in the stool 7. If gastric biopsy reveal H.pylori, continue with appropriate treatment 8. If small bowel biopsy reveals celiac, continue with appropriate treatment 9. Please don't hesitate to call me with any questions Abhishek Sen MD Jan 16, 2017 15:00
[2017-01-16 15:02] VITALS: BP 177/86; PULSE 88; RESP 17; O2SAT 98
--- NOTE | 2017-01-16 15:03 | PCM.ENDCOL ---
Colonoscopy Date of Service: Jan 16, 2017 Physician Ahbishek Sen MD Pre Procedure Diagnosis: Blood in the stools Post Procedure Dx & Findings: Superficial and deep fissuring ulcers in the colon. Procedure Colonoscopy PROCEDURE IN DETAIL: Anesthesia done by anesthesiology. Prep adequate Withdrawal time 8 minutes After unremarkable rectal examination the Olympus video colonoscope was inserted patient's anal canal and was advanced to cecum. Landmarks were identified including the ileocecal valve and appendiceal orifice. Scope advanced to terminal ileum. We advanced 10 cm. The visualized ileum showed normal villous structures without any ulcer or mass erosions. Scope was withdrawn systematically. Visualized colonic mucosa showed healthy shiny mucosa with normal healthy-appearing vasculature. From the ascending colon into the sigmoid colon there were patchy areas of superficial and sometimes deep fissuring ulcers. This was not continuous. Some of the ulcers were as big as a centimeter in size. Some were quite superficial as well. Biopsies are done to rule out inflammatory bowel disease. In the sigmoid colon there are a few small to medium-sized diverticuli In the rectum retroflexion was done which showed hemorrhoids. Anal canal was inspected carefully on the way out and hemorrhoids noted. Impression Colonic ulcers. Biopsies done. Normal terminal ileum Diverticuli Hemorrhoids Recommendation Follow up in GI clinic Presedation Assessment Risks and Benefits Informed consent was obtained from the patient after all risks and benefits including but not limited to drug reaction, infection, pain, bleeding, perforation, as well as alternatives were discussed. Patient monitoring Continuous pulse oximetry, cardiac monitoring, blood pressure monitoring, IV access, and oxygen at 2L per nasal cannula. Complications There were no periprocedural complications identified. Post Procedure Plan Post Procedure Recommendations 1. Restrict activities today. 2. Resume normal activities in the morning. 3. Resume medications. 4. Patient informed of normal post procedure side effects as bloating, drowsiness, blood streaking in the stool. 5. average risk CRCS. If colon polyps come back as: -Hyperplastic- can repeat colonoscopy in 10 years -Tubular adenoma- repeat colonoscopy in 5 years -Tubulovillous/villous adenoma- repeat colonoscopy in 3 years -If any dysplasia- return to clinic as soon as possible 6. Please don't hesitate to call me with any questions. Abhishek Sen MD Jan 16, 2017 15:03
[2017-01-16 15:16] VITALS: BP 200/89; PULSE 72; RESP 16; O2SAT 99
[2017-01-16 15:26] VITALS: BP 204/97; PULSE 73; RESP 16; O2SAT 97
--- NOTE | 2017-01-16 15:29 | PCM.ANEP1 ---
Post Anesthesia PACU Phase 1 Assessment Vital Signs Vital Signs Date Time Temp Pulse Resp B/P Pulse Ox O2 Delivery O2 Flow Rate FiO2 01/16/17 15:26 73 16 204/97 97 Room Air 01/16/17 15:16 72 16 200/89 99 Room Air 01/16/17 15:02 88 17 177/86 98 Room Air 01/16/17 13:49 67 16 179/96 97 Room Air Anesthetic Administered: MAC Level of Alertness: Awake, talking ARSHAD's with Equal Strength: Yes Pain: No Nausea or Vomiting: No CV Function & Hydration Stable: Yes Airway Device: Oxygen Delivery: Room Air Lungs: Normal Air Movement PACU Phase 2 Assessment Complications: No Follow up Care: No Patient Instructions Provided: N/A Ignacio Anaya MD Jan 16, 2017 15:29
[2017-01-16 15:30] VITALS: BP 161/97; PULSE 69; RESP 16; O2SAT 98
--- NOTE | 2017-01-22 12:23 | PATH ---
SURGICAL PATHOLOGY Attending Physician:Abhishek Sen M.D. CASE STATUS: Signed Out PATIENT NAME: ALFREDA FATIMA PID: [id number] : 1975 DATE COLLECTED:01/16/2017 00:00 SPECIMEN: 1: Gastric, Biopsy 2: Colon, Biopsy CLINICAL HISTORY: ABDOMINAL PAIN, GASTRITIS, GLASER-COLONIC ULCERATIONS ?CROHN'S COLITIS 1). GASTRIC BIOPSY (RULE OUT H PYLORI) 2). RANDOM COLON BIOPSY FINAL DIAGNOSIS: 1.GASTRIC BIOPSY: - GASTRIC ANTRAL-TYPE MUCOSA WITH MILD CHRONIC AND FOCALLY ACTIVE GASTRITIS. - Negative for Helicobacter pylori by immunohistochemistry. - No evidence of granulomas. - Negative for intestinal metaplasia. - Negative for dysplasia and malignancy. 2.RANDOM COLON BIOPSY: - FRAGMENTS OF COLONIC MUCOSA WITH MILD FOCALLY ACTIVE COLITIS WITH DENUDED AREAS AND CRYPT ATROPY, SUGGESTIVE OF ISCHEMIA TYPE CHANGES. SEE COMMENT. - MILD INCREASE IN MUCOSAL AND SUBMUCOSAL EOSINOPHILS. - NO EVIDENCE OF CHRONIC COLITIS. - No definite viral cytopathic changes are identified. - Negative for granulomas, dysplasia and malignancy - Additional deeper levels examined. - See comment. [id number] NOTE: The findings in part 2, designated as "random colon biopsy", are not entirely specific and can be seen with acute self-limited colitis, infection, ischemia, and colitis associated with drugs. The endoscopic impression of patchy areas of superficial and sometimes deep fissuring ulcers involving the ascending colon into the sigmoid colon is noted. Inflammatory bowel disease can not be completely excluded. Clinical and endoscopic correlation is recommended. An immunohistochemical stain for viral antigens could not be performed as the block was exhausted. As part of a routine quality assurance associate, Dr. Ferrell has also reviewed part 2 of this case and agrees with the diagnosis. GROSS DESCRIPTION: The specimen is received in two formalin filled containers labeled with the patient's name. 1). The specimen is labeled "gastric" he and consists of 2 portions of tissue which aggregate to 0.2 x 0.2 x 0.2 CM. The specimen is entirely submitted in cassettes 1A. 2). The specimen is labeled "random colon" and consists of 4 portions of tissue which aggregate to 0.3 x 0.2 x 0.2 CM. The specimen is entirely submitted in cassette 2A. 01/17/2017DC MICRO DESCRIPTION: An immunohistochemical stain was performed to evaluate for Helicobacter pylori microorganisms. The control stains show appropriate reactivity. ICD-9 CODES: CPT CODES: 1: 58374, 21633 2: 68158 Electronically Signed Out Peter Hunt MD [facility] [address], [place] [address] Technical component performed at [facility], [facility] [address], [place], [address]
== END | disposition home or self-care (01) ==
LOC: END 00:57
PROVIDERS: ATTEND Internal Medicine
DX: K92.1 Melena (principal); K52.9 Noninfective gastroenteritis and colitis, unspecified; K63.3 Ulcer of intestine; K57.30 Diverticulosis of large intestine without perforation or abscess without bleeding; K64.8 Other hemorrhoids; K29.50 Unspecified chronic gastritis without bleeding; K31.9 Disease of stomach and duodenum, unspecified; N18.6 End stage renal disease; I12.0 Hypertensive chronic kidney disease with stage 5 chronic kidney disease or end stage renal disease; Z99.2 Dependence on renal dialysis; Z79.51 Long term (current) use of inhaled steroids; Z79.52 Long term (current) use of systemic steroids
CPT/HCPCS: 43239; 45380; J2704; J3010; J7030